=== PATIENT | female | born 1935 | race Caucasian/White ===

== ENCOUNTER 2016-09-02 01:00 | Inpatient (IN) | payer MEDICARE, OTHER ==
--- NOTE | ~2016-09-02 | OP ---
Record Of Operation [facility] [address] [place]. [address] NAME: AMILCAR CRAVEN : 33 STATUS : ADM IN PAT#: [id number] AGE: 81 ADM/REG DATE : 09/02/16 MR#: [id number] REPORT SERV DATE: 09/03/16 DICTATED BY: TAMRA BARILLAS DATE: 09/02/16 REPORT STATUS : Draft TRANSCRIBED BY: MODL DATE: 09/02/16 DATE OF PROCEDURE: 09/02/2016 PREOPERATIVE DIAGNOSIS: Displaced left femoral neck fracture. POSTOPERATIVE DIAGNOSIS: Displaced left femoral neck fracture. PROCEDURE: Uncemented total hip arthroplasty, Tri-Lock. SIDE: Left. SVP OF DIGITAL: ANESTHESIA: See chart. SIZE: See chart. ESTIMATED BLOOD LOSS: About 100 mL. INDICATIONS FOR SURGERY: PROCEDURE: The patient was taken to the operating room and placed supine on the table without incident. Anesthetic was induced per the anesthesiologist. A Nielsen catheter was placed by the nurse in the standard sterile technique. The correct side for the procedure was identified by preoperative markings and matched with the consent form. All personnel in the room were in agreement regarding the procedure, patient, and side. The patient was then carefully positioned and carefully padded and prepped and draped in the normal sterile fashion. The patient received prophylactic preoperative antibiotics at the appropriate time. The preoperative x-ray was brought up on the monitor. Again, this was reviewed with the staff in the room. According with the preoperative plan, and angled, an anterolateral incision was made centered over the trochanter extending from proximal posterior to distal anterior. Electrocautery was used to maintain meticulous hemostasis. The IT band was split in line with its fibers. A Charnley retractor was placed over saline moistened laps. A standard anterolateral approach to the hip was carried out dissecting in line with the vastus medialis fibers lifting the inferior 20% of the vastus medialis, proximally the interior 20% of the gluteus medius and gluteus minimus tendons off the anterior capsule. Periosteal elevator was used to elevate soft tissue gently directly off the proximal anterior femoral bone. Appropriate retractors were carefully placed. Complete anterior capsulectomy was performed. The hip was then carefully dislocated with a combination of traction maneuver by the assistant community manager and scooping the ball out of the socket with a Hohmann. A femoral neck osteotomy was marked according to what had been preoperatively planned with a broach as a template. The distance for the femoral neck osteotomy was measured with a ruler. A femoral neck osteotomy was made with an oscillating saw under appropriate retraction. Meticulous hemostasis was again obtained. The leg was then brought up out of the anterior bag and Record Of Operation [facility] [address] [place]. [address] NAME: AMILCAR CRAVEN : 33 STATUS : ADM IN PAT#: [id number] AGE: 81 ADM/REG DATE : 09/02/16 MR#: [id number] REPORT SERV DATE: 09/03/16 DICTATED BY: TAMRA BARILLAS DATE: 09/02/16 REPORT STATUS : Draft TRANSCRIBED BY: MEGHANA DATE: 09/02/16 positioned with the lower extremity in external rotation and slight flexion. Acetabular retractors were placed carefully palpating to be sure that they were directly on the bone. The acetabular labrum was excised with electrocautery and rongeur. Pulvinar fat was removed with a large curette and rongeur and again meticulous hemostasis was obtained. Sequential reamers were used in the acetabulum to 1 mm. less than the final size which was chosen. This was felt to give excellent interference fit. The acetabular fossa was then copiously irrigated with pulsatile lavage and actual acetabular component was placed and impacted and checked to make sure it was down snug. The overall alignment was checked. The acetabular filler block inserter remover was then removed. Screws were placed in the standard fashion. A drill, depth gauge and self tapping screw placement taking care not to plunge as the drill holes were carefully placed. A trial liner was then placed and attention directed back to the proximal femur. The leg was placed back into the anterior bag. The proximal femur was prepared using a box chisel following by a T-handled reamer to determine the intramedullary alignment. This was followed by sequential broaches up to the final broach. Once it was seated in the appropriate position, a Calcar reamer was used to plane the proximal femur. Trial reduction was then done with a trial prosthetic ball and neck. A straight edge was used to compare the tip of the trochanter to center of the ball relationship to what had been noted on the preoperative x-ray. Careful reduction was then done of the total hip. Palpation was done to ascertain and compare leg lengths by palpating the nonoperative leg and also by checking soft tissue tension. The stability of the hip was checked in full extension with full external rotation and in full flexion with adduction, flexion and internal rotation. The hip was then redislocated with a bone hook. The femoral trial and femoral broach were removed. The acetabulum was then prepared under appropriate retraction by removing the trial liner. A central hole eliminator was placed and tightened. The shell was irrigated out. The actual insert was placed and impacted and then checked to be sure it was down snug with a joker. The leg was again positioned in the bag. The proximal femur exposed, irrigated and the actual thermal prosthesis was taken from the security representative and impacted. Once it was down, the trunnion was cleansed with a wet and dry lap and the prosthetic thermal head was placed and impacted and checked to be sure it was down snug. The acetabulum was irrigated and reduction was obtained. Again, we checked soft tissue tension, leg length and stability as described above. The hip was closed in a layered fashion with a 5 mm. Mersilene tape placed through a single drill hole in the proximal anterior/superior trochanter reattaching the gluteus medius and minimus fibers. The vastus lateralis, gluteus medius, and gluteus minimus were then closed in a sleeve. Drain was placed between the vastus and the IT band exiting distally anteriorly. The IT band was closed. Subcutaneous closure and skin closure were then obtained. A sterile dressing was applied. The patient was carefully positioned into a supine position and then awakened. The patient was then carefully transferred to the stretcher to be returned to the postoperative care unit without incident. COMPLICATION: None. SPECIMENS: Left femoral head. Record Of Operation [facility] [address] [facility] [place]. [address] NAME: AMILCAR CRAVEN : 33 STATUS : ADM IN [facility]#: [id number] AGE: 81 ADM/REG DATE : 09/02/16 MR#: [id number] REPORT SERV DATE: 09/03/16 DICTATED BY: TAMRA BARILLAS DATE: 09/02/16 REPORT STATUS : Draft TRANSCRIBED BY: MODAydin DATE: 09/02/16 WTB/MODAydin Jonatan Barillas M.D. / [id number] CC: Henry Mccain MD
--- NOTE | ~2016-09-02 | DS ---
Discharge Summary [facility] [address] [place]. [address] NAME: AMILCAR CRAVEN : 33 STATUS : DIS IN PAT#: [id number] AGE: 81 ADM/REG DATE : 09/02/16 MR#: [id number] REPORT SERV DATE: 09/07/16 DICTATED BY: DATE: REPORT STATUS : Draft TRANSCRIBED BY: MODL DATE: 09/06/16 ADMISSION DATE: 09/02/2016 DISCHARGE DATE: 09/06/2016 Date of admission to [facility] 09/02/2016 with date of discharge 09/06/2016. The patient was admitted to the Hospitalist Service at [facility], discharged from the Hospitalist Service at [facility]. CONSULTANTS: Included Dr. Rucker of Orthopedics. DISCHARGE DIAGNOSES: 1. Left hip fracture following mechanical fall, status post left total hip arthroplasty on 09/02/2016. 2. Urinary tract infection. 3. History of Clostridium difficile colitis-no evidence of loose bowel movements here. 4. History of congestive heart failure with ejection fraction 20%, acute exacerbation at admission, resolved. 5. Dementia. 6. Depression and anxiety. 7. History of iron deficiency anemia-on replacement. 8. Postoperative deep venous thrombosis prophylaxis with Coumadin. 9. Low body mass index. IMAGIN. Brain CT without contrast, 09/01/2016, no acute intracranial hemorrhage or other acute intracranial pathology. Advanced diffuse cerebral involutional change and moderate advanced deep white matter chronic microvascular ischemic change, stable from February 2016. Soft tissue swelling on the frontal scalp with no cranial fracture. 2. Portable chest x-ray, 09/01/2016, showing cardiomegaly, sequelae of bilateral chronic rotator cuff tear. No rib fractures or pneumothorax. 3. Plain films of the left hip, 09/01/2016, left Garden 3 femoral neck fracture with global osteopenia. 4. Plain films of the left elbow, negative. 5. Pelvic films 09/01/2016, left Garden 3 femoral neck fracture. 6. Echocardiogram, 09/02/2016, severe left ventricle dysfunction with ejection fraction in the mid 20% range, anteroseptal akinesis, right ventricle systolic function also moderately impaired, aortic sclerosis with mild to moderate stenosis, small pericardial effusion of unknown significance. 7. PA and lateral chest x-ray, 09/02/2016, developing right perihilar infiltrate versus small right pleural effusion. 8. Pelvis films, 09/02/2016, status post interval left hip arthroplasty for repair of left femoral neck fracture. Stable surgical changes of the proximal right femur with intramedullary chato and screw device. 9. Portable chest x-ray, 09/04/2016, right basilar atelectasis with minimal right pleural fluid. 10.Demand related ischemia. Discharge Summary [address] [place]. [address] NAME: AMILCAR CRAVEN : 33 STATUS : DIS IN PAT#: [id number] AGE: 81 ADM/REG DATE : 09/02/16 MR#: [id number] REPORT SERV DATE: 09/07/16 DICTATED BY: DATE: REPORT STATUS : Draft TRANSCRIBED BY: MODL DATE: 09/06/16 PERTINENT LABS: Hemoglobin was stable preop and postop. Troponin values between 0.25 and 0.07. Urinalysis with large leukocyte esterase, 125 white blood cells. Subsequent culture showing mixed magnolia. Creatinine normal throughout admission with normal white blood cell count as well. INR at discharge 1.9, on Coumadin for DVT prophylaxis. Discharge hemoglobin 11.7. BRIEF HISTORY: For full details, please see the previously dictated history of present illness by Dr. Moncho Rosales at [facility]. This is an 81-year-old white female, who suffered a mechanical fall when getting out of bed, hit her left side injuring her shoulder, elbow, and hips. X-rays revealed a garden [address] Rucker was consulted for Ortho and wanted the patient transferred to the [facility] for further evaluation. Transfer occurred on the morning of 09/02/2016 and the patient went immediately to left hip total arthroplasty. HOSPITAL COURSE: Post surgery, the patient was found to have evidence of mild volume overload and acute congestive heart failure exacerbation with baseline ejection fraction 20% to 25%. This was managed with IV Lasix and her home medications were continued to include MARISA inhibitor, beta arnulfo, aspirin, statin. The pulmonary edema cleared and she did not require any supplemental oxygen at the time of discharge. Lung examination was normal at that point. She also demonstrated evidence of urinary tract infection with large leukocyte esterase, 125 white cells on urinalysis. She had a Nielsen catheter for 24 hours postop, and this was discontinued upon determination of urinary tract infection present at admission. She has a history of frequent urinary tract infections. This culture grew only diphtheroids, but past culture data were reviewed, and she is a good candidate for treatment with Bactrim based on prior culture data. 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 She did not demonstrate any loose bowel movements here and therefore no current evidence of C. diff colitis. She is on Coumadin for DVT prophylaxis and this will need to be closely monitored at her rehab facility. DISCHARGE DISPOSITION: To rehab when accepted and approved for additional physical rehabilitation following left hip total arthroplasty. She should adhere to a cardiac 1500 mL fluid restricted diet at discharge and sometimes requires assistance with meals due to generalized weakness. PT/INR will need to be checked at rehab every 48 hours with goal INR 2.0 to 3.0 for postoperative DVT prophylaxis. Her Coumadin needs to be discontinued on 09/02/2016, one month postop. If she experiences any loose bowel movements at rehab, we would request that the facility would check stool for C. diff, given past history. Discharge Summary [place] [id number] [facility] [place]. [address] NAME: AMILCAR CRAVEN : 33 STATUS : DIS IN PAT#: [id number] AGE: 81 ADM/REG DATE : 09/02/16 MR#: [id number] REPORT SERV DATE: 09/07/16 DICTATED BY: DATE: REPORT STATUS : Draft TRANSCRIBED BY: MEGHANA DATE: 09/06/16 The patient will need to follow up with Dr. Kenrick Rucker and her primary care provider within one to two weeks after discharge from rehab. DISCHARGE MEDICATIONS: Include, 1. Aspirin 81 mg p.o. daily. 2. Lipitor 10 mg p.o. q.h.s. 3. Coreg 3.125 mg p.o. daily. 4. Celexa 20 mg p.o. daily. 5. B12 of 1000 mcg p.o. daily. 6. Lasix 40 mg p.o. daily. 7. Prinivil 5 mg p.o. daily. 8. Remeron 7.5 mg p.o. q.h.s. 9. Multivitamin one tablet p.o. daily with meals. 10.Potassium 20 mEq p.o. daily. 11.Bactrim double strength one tablet p.o. twice a day for four days-discontinue after 09/09/2016 dosages. 12.DuoNeb 3 mL inhaled every four hours while awake as needed for shortness of breath. 13.Tylenol 650 mg p.o. every four hours as needed. 14.Dulcolax 15 mg p.o. daily as needed. 15.Colace 100 mg p.o. daily. 16.Hydrocodone 5/325 mg one tablet p.o. every four hours as needed for severe pain. 17.Milk of magnesia 30 mL p.o. daily as needed. 18.Zofran 4 mg p.o. every four hours as needed. 19.MiraLAX one packet p.o. twice a day as needed. 20.Iron sulfate 325 mg p.o. daily. 21.Coumadin 2 mg p.o. daily. 35 minutes were spent in completion of the discharge summary. DICTATED BY: Henry Mccain/MEGHANA Rex Jimenez M.D. / [id number] CC: Henry Mccain HAK SOK W. Timothy Ballard, M.D.
--- NOTE | ~2016-09-02 | HP ---
History And Physical [address] [place]. [address] NAME: AMILCAR CRAVEN : 33 STATUS : ADM IN PAT#: [id number] AGE: 81 ADM/REG DATE : 09/02/16 MR#: [id number] REPORT SERV DATE: 09/03/16 DICTATED BY: TAMRA RUCKER DATE: 09/02/16 REPORT STATUS : Draft TRANSCRIBED BY: MODL DATE: 09/02/16 DATE OF ADMISSION: 09/02/2016 CHIEF COMPLAINT: Left hip pain. HISTORY: An 81-year-old female, tripped and fell in the kitchen. I believe she has had an injury to left hip. Denies pain or injury elsewhere. ALLERGIES: ANTI-INFLAMMATORY MEDICATIONS, QUINOLONES, DIAZEPAM, CODEINE, FLAGYL, MEPERIDINE, PHENAZOPYRIDINE, AND LEVOFLOXACIN. MEDICATIONS: See chart. PAST MEDICAL HISTORY: Dementia per chart, cataracts, hypertension, hypercholesterolemia, arthritis, frequent UTIs, anxiety, depression, and anemia. PAST SURGICAL HISTORY: Cholecystectomy, kidney stone removal 20 years ago, and hysterectomy. SOCIAL HISTORY: No cigarettes, alcohol, or illicit drug use. FAMILY HISTORY: No anesthetic complications. REVIEW OF SYSTEMS: Otherwise, negative, except as above. PHYSICAL EXAMINATION: GENERAL: She is alert and pleasant, appears to be oriented. HEENT: Atraumatic and normocephalic. NECK: Supple. CHEST: Symmetric and nontender. LUNGS: Per AA evaluation. CV: Regular rhythm. ABDOMEN: Soft. No mass. EXTREMITIES: Both upper extremities and right lower extremity without acute trauma. Left lower extremity is short and externally rotated. Skin is intact. Compartment supple. 2+ pulses. NEURO: Sensorimotor without deficit. X-RAYS: Displaced left femoral neck fracture. ASSESSMENT: Displaced left femoral neck fracture. PLAN: Left total hip arthroplasty. We discussed this with her and with her son, Wolf, at length, who I spoke with some length over phone, and he and she wish to proceed. History And Physical [address] [place]. [address] NAME: AMILCAR CRAVEN : 33 STATUS : ADM IN PAT#: [id number] AGE: 81 ADM/REG DATE : 09/02/16 MR#: [id number] REPORT SERV DATE: 09/03/16 DICTATED BY: TAMRA RUCKER DATE: 09/02/16 REPORT STATUS : Draft TRANSCRIBED BY: MODL DATE: 09/02/16 WTB/MODL Jonatan Rucker M.D. / [id number] CC: Henry Mccain MD
[~2016-09-02 01:00] MED LIST: *UNABLE1; *UNABLE2; A/D ZINC OXI TOP; ADVIL PO; AMB10 PO; ASAB PO; ASPIRIN; BANOPHEN25 MG PO; BARRIER CREAM TOP; BRINT10T PO; CELEXA10 PO; CELEXA20 PO; CENTRUM PO; COREG3; COREG3 PO; CRANBERRY OTC PO; CYANO1000T PO; DOK100 MG PO; FERROUS SULF325 M1 PO; FLONASE; FLONASE NAS; FLORASTOR250 MG PO; HALF81 PO; IBU400 PO; IRON OTC PO; KLOR-CON M2020 MEQ PO; L40; L40 PO; MELA3 PO; MVI PO; NORV5 PO; OTC ALLERGY MED PO; PRIN10 PO; PRIN5 PO; REM15 PO; REMERON30 MG; REMERON30 MG PO; REST75 PO; THERGRANM PO; TRAZ50 PO; TRINTELLIX; TRINTELLIX PO; VANCOCIN HCL125 MG PO; VITAMIN B-12 OTC PO; VITAMIN B-121000 MC1 SL; ZESTRIL5 MG PO; ZOCOR10 PO; ZOCOR20 PO
[2016-09-02 06:54] LABS: INTERNATIONAL NORMAL RATI 1.3 UNITS (-)
[2016-09-02 06:59] LABS: BASOPHILS 0.2 %; BASOPHILS ABSOLUTE 0.02 10/3/uL (0.0-0.16); EOSINOPHILS 2.1 %; EOSINOPHILS ABSOLUTE 0.22 10/3/uL (0.0-0.53); HEMATOCRIT 36.2 % (36.0-48.0); HEMOGLOBIN 11.7 g/dL (12.0-16.0); IMMATURE GRANULOCYTES 0.4 %; IMMATURE GRANULOCYTES ABSOLUTE 0.04 10/3/uL (0.0-0.11); LYMPHOCYTES 13.2 %; LYMPHOCYTES ABSOLUTE 1.39 10/3/uL (0.67-4.30); MANUAL DIFF NO %; MEAN CORPUS HGB CONC 32.3 g/dL (32.0-36.0); MEAN CORPUSCULAR HEMOGLOB 33.7 pg (26.0-34.0); MEAN CORPUSCULAR VOLUME 104.3 fL (80-100); MEAN PLATELET VOLUME 10.8 fL (9.2-13.0); MONOCYTES 5.9 %; MONOCYTES ABSOLUTE 0.62 10/3/uL (0.21-1.20); NEUTROPHILS 78.2 %; NEUTROPHILS ABSOLUTE 8.22 10/3/uL (2.02-8.40); PLATELET COUNT 213 10/3/uL (150-400); RBC DISTRIBUTION WIDTH 14.7 % (12.0-16.0); RED CELL COUNT 3.47 10/6/uL (4.0-5.6); WHITE BLOOD CELLS 10.5 10/3/uL (4.5-10.5)
[2016-09-02 07:13] LABS: A/G RATIO 1.2 (0.7-1.9); ALBUMIN 3.2 G/DL (3.5-5.0); ALKALINE PHOSPHATASE 64 U/L (45-117); BUN (BLOOD UREA NITROGEN) 14 MG/DL (6-23); CALCIUM, SERUM 8.8 MG/DL (8.5-10.4); CHLORIDE, SERUM 110 MMOL/L (96-112); CO2 (CARBON DIOXIDE) 27 MMOL/L (24-34); CREATININE 0.67 MG/DL (0.55-1.02); GFR AFRICAN AMERICAN 94 ML/MIN (>=60); GFR NON AFRICAN AMERICAN 81 ML/MIN (>=60); GLOBULIN 2.7 G/DL (2.5-4.1); GLUCOSE, SERUM 120 MG/DL (60-99); PHOSPHORUS, SERUM 2.6 MG/DL (2.5-4.5); POTASSIUM, SERUM 3.1 MMOL/L (3.5-5.3); SGOT(AST) 11 U/L (5-40); SGPT(ALT) 16 U/L (5-65); SODIUM, SERUM 145 MMOL/L (135-148); TOTAL BILIRUBIN 0.6 MG/DL (0-1.2); TOTAL PROTEIN 5.9 G/DL (6.0-8.5)
[2016-09-02 07:15] LABS: TROPONIN I 0.25 NG/ML (<0.05)
[2016-09-02 10:41] LABS: TROPONIN I 0.23 NG/ML (<0.05)
[2016-09-02 11:55] LABS: BASOPHILS 0.3 %; BASOPHILS ABSOLUTE 0.03 10/3/uL (0.0-0.16); EOSINOPHILS 3.4 %; EOSINOPHILS ABSOLUTE 0.36 10/3/uL (0.0-0.53); HEMATOCRIT 36.5 % (36.0-48.0); IMMATURE GRANULOCYTES 0.4 %; IMMATURE GRANULOCYTES ABSOLUTE 0.04 10/3/uL (0.0-0.11); LYMPHOCYTES 15.7 %; LYMPHOCYTES ABSOLUTE 1.65 10/3/uL (0.67-4.30); MEAN CORPUS HGB CONC 32.9 g/dL (32.0-36.0); MEAN CORPUSCULAR HEMOGLOB 34.3 pg (26.0-34.0); MEAN CORPUSCULAR VOLUME 104.3 fL (80-100); MONOCYTES 5.2 %; MONOCYTES ABSOLUTE 0.55 10/3/uL (0.21-1.20); NEUTROPHILS ABSOLUTE 7.86 10/3/uL (2.02-8.40); PLATELET COUNT 207 10/3/uL (150-400); WHITE BLOOD CELLS 10.5 10/3/uL (4.5-10.5)
[2016-09-02 11:56] LABS: MANUAL DIFF NO %
[2016-09-02 12:07] LABS: BUN (BLOOD UREA NITROGEN) 15 MG/DL (6-23); CALCIUM, SERUM 8.4 MG/DL (8.5-10.4); CHLORIDE, SERUM 111 MMOL/L (96-112); CO2 (CARBON DIOXIDE) 25 MMOL/L (24-34); CREATININE 0.72 MG/DL (0.55-1.02); GFR AFRICAN AMERICAN 90 ML/MIN (>=60); GFR NON AFRICAN AMERICAN 77 ML/MIN (>=60); GLUCOSE, SERUM 113 MG/DL (60-99); POTASSIUM, SERUM 3.6 MMOL/L (3.5-5.3); SODIUM, SERUM 146 MMOL/L (135-148)
[2016-09-02 14:10] LABS: ASCORBIC ACID (UR NOT ORDER) NEG (NEG); BILIRUBIN, URINE NEGATIVE (NEG); KETONE, URINE TRACE MG/DL (NEG); LEUKOCYTE ESTERASE(NOT OR LARGE (NEG); WBC (NOT ORDERED) (RFLEX) 125 (0-5)
[2016-09-03 07:01] LABS: HEMOGLOBIN 10.5 g/dL (12.0-16.0)
[2016-09-03 07:09] LABS: INTERNATIONAL NORMAL RATI 1.4 UNITS (-); PROTIME (NOT ORD) 16.6 SEC (12.0-14.5)
[2016-09-03 07:20] LABS: CALCIUM, SERUM 8.4 MG/DL (8.5-10.4); CHLORIDE, SERUM 113 MMOL/L (96-112); CO2 (CARBON DIOXIDE) 28 MMOL/L (24-34); GFR AFRICAN AMERICAN 93 ML/MIN (>=60); GFR NON AFRICAN AMERICAN 80 ML/MIN (>=60); GLUCOSE, SERUM 94 MG/DL (60-99); SODIUM, SERUM 146 MMOL/L (135-148)
[2016-09-03 07:21] LABS: BUN (BLOOD UREA NITROGEN) 19 MG/DL (6-23)
[2016-09-04 07:07] LABS: BASOPHILS 0.1 %; BASOPHILS ABSOLUTE 0.01 10/3/uL (0.0-0.16); EOSINOPHILS ABSOLUTE 0.93 10/3/uL (0.0-0.53); HEMATOCRIT 31.8 % (36.0-48.0); HEMOGLOBIN 10.4 g/dL (12.0-16.0); IMMATURE GRANULOCYTES 0.4 %; IMMATURE GRANULOCYTES ABSOLUTE 0.03 10/3/uL (0.0-0.11); LYMPHOCYTES 17.6 %; LYMPHOCYTES ABSOLUTE 1.26 10/3/uL (0.67-4.30); MEAN CORPUS HGB CONC 32.7 g/dL (32.0-36.0); MEAN CORPUSCULAR HEMOGLOB 34.2 pg (26.0-34.0); MEAN CORPUSCULAR VOLUME 104.6 fL (80-100); MEAN PLATELET VOLUME 10.9 fL (9.2-13.0); MONOCYTES 8.4 %; NEUTROPHILS 60.5 %; NEUTROPHILS ABSOLUTE 4.34 10/3/uL (2.02-8.40); RBC DISTRIBUTION WIDTH 14.9 % (12.0-16.0); RED CELL COUNT 3.04 10/6/uL (4.0-5.6); WHITE BLOOD CELLS 7.2 10/3/uL (4.5-10.5)
[2016-09-04 07:08] LABS: MANUAL DIFF NO %; PLATELET COUNT 144 10/3/uL (150-400)
[2016-09-04 07:14] LABS: INTERNATIONAL NORMAL RATI 1.6 UNITS (-); PROTIME (NOT ORD) 18.9 SEC (12.0-14.5)
[2016-09-04 07:26] LABS: BUN (BLOOD UREA NITROGEN) 20 MG/DL (6-23); CALCIUM, SERUM 8.4 MG/DL (8.5-10.4); CHLORIDE, SERUM 111 MMOL/L (96-112); CO2 (CARBON DIOXIDE) 28 MMOL/L (24-34); CREATININE 0.61 MG/DL (0.55-1.02); GFR AFRICAN AMERICAN 97 ML/MIN (>=60); GFR NON AFRICAN AMERICAN 84 ML/MIN (>=60); GLUCOSE, SERUM 105 MG/DL (60-99); POTASSIUM, SERUM 4.1 MMOL/L (3.5-5.3); SODIUM, SERUM 144 MMOL/L (135-148); TROPONIN I 0.07 NG/ML (<0.05)
[2016-09-05 06:10] LABS: BASOPHILS 0.3 %; BASOPHILS ABSOLUTE 0.03 10/3/uL (0.0-0.16); EOSINOPHILS 11.1 %; EOSINOPHILS ABSOLUTE 1.03 10/3/uL (0.0-0.53); HEMATOCRIT 36.1 % (36.0-48.0); HEMOGLOBIN 11.7 g/dL (12.0-16.0); IMMATURE GRANULOCYTES 0.4 %; IMMATURE GRANULOCYTES ABSOLUTE 0.04 10/3/uL (0.0-0.11); LYMPHOCYTES 21.5 %; LYMPHOCYTES ABSOLUTE 1.99 10/3/uL (0.67-4.30); MANUAL DIFF NO %; MEAN CORPUS HGB CONC 32.4 g/dL (32.0-36.0); MEAN CORPUSCULAR HEMOGLOB 34.1 pg (26.0-34.0); MEAN CORPUSCULAR VOLUME 105.2 fL (80-100); MEAN PLATELET VOLUME 10.9 fL (9.2-13.0); MONOCYTES 9.6 %; MONOCYTES ABSOLUTE 0.89 10/3/uL (0.21-1.20); NEUTROPHILS 57.1 %; NEUTROPHILS ABSOLUTE 5.26 10/3/uL (2.02-8.40); PLATELET COUNT 185 10/3/uL (150-400); RBC DISTRIBUTION WIDTH 14.9 % (12.0-16.0); RED CELL COUNT 3.43 10/6/uL (4.0-5.6); WHITE BLOOD CELLS 9.2 10/3/uL (4.5-10.5)
[2016-09-05 06:13] LABS: INTERNATIONAL NORMAL RATI 1.8 UNITS (-); PROTIME (NOT ORD) 21.1 SEC (12.0-14.5)
[2016-09-05 06:20] LABS: BUN (BLOOD UREA NITROGEN) 18 MG/DL (6-23); CHLORIDE, SERUM 109 MMOL/L (96-112); CO2 (CARBON DIOXIDE) 26 MMOL/L (24-34); CREATININE 0.55 MG/DL (0.55-1.02); GFR AFRICAN AMERICAN 101 ML/MIN (>=60); GFR NON AFRICAN AMERICAN 87 ML/MIN (>=60); GLUCOSE, SERUM 122 MG/DL (60-99); POTASSIUM, SERUM 4.1 MMOL/L (3.5-5.3); SODIUM, SERUM 142 MMOL/L (135-148)
[2016-09-06 04:55] LABS: BASOPHILS 0.6 %; BASOPHILS ABSOLUTE 0.05 10/3/uL (0.0-0.16); EOSINOPHILS 12.2 %; EOSINOPHILS ABSOLUTE 1.08 10/3/uL (0.0-0.53); HEMATOCRIT 34.3 % (36.0-48.0); IMMATURE GRANULOCYTES 0.7 %; IMMATURE GRANULOCYTES ABSOLUTE 0.06 10/3/uL (0.0-0.11); LYMPHOCYTES 29.1 %; LYMPHOCYTES ABSOLUTE 2.58 10/3/uL (0.67-4.30); MEAN CORPUS HGB CONC 32.1 g/dL (32.0-36.0); MEAN CORPUSCULAR HEMOGLOB 33.8 pg (26.0-34.0); MEAN CORPUSCULAR VOLUME 105.5 fL (80-100); MEAN PLATELET VOLUME 10.7 fL (9.2-13.0); MONOCYTES 9.1 %; MONOCYTES ABSOLUTE 0.81 10/3/uL (0.21-1.20); NEUTROPHILS 48.3 %; NEUTROPHILS ABSOLUTE 4.29 10/3/uL (2.02-8.40); PLATELET COUNT 230 10/3/uL (150-400); RBC DISTRIBUTION WIDTH 14.8 % (12.0-16.0); RED CELL COUNT 3.25 10/6/uL (4.0-5.6); WHITE BLOOD CELLS 8.9 10/3/uL (4.5-10.5)
[2016-09-06 04:56] LABS: MANUAL DIFF NO %
[2016-09-06 05:02] LABS: INTERNATIONAL NORMAL RATI 1.9 UNITS (-); PROTIME (NOT ORD) 21.8 SEC (12.0-14.5)
[2016-09-06 05:09] LABS: CHLORIDE, SERUM 108 MMOL/L (96-112); CREATININE 0.71 MG/DL (0.55-1.02); GFR AFRICAN AMERICAN 91 ML/MIN (>=60); GFR NON AFRICAN AMERICAN 79 ML/MIN (>=60); POTASSIUM, SERUM 4.5 MMOL/L (3.5-5.3); SODIUM, SERUM 142 MMOL/L (135-148)
[2016-09-06 05:10] LABS: BUN (BLOOD UREA NITROGEN) 24 MG/DL (6-23); CO2 (CARBON DIOXIDE) 32 MMOL/L (24-34); GLUCOSE, SERUM 95 MG/DL (60-99)
== END 2016-09-06 20:21 | DRG 469 ==
LOC: 7NO 01:00
PROVIDERS: Hospitalist; Internal Medicine; Specialist
PROC: 0SRB02A Replacement of Left Hip Joint with Metal on Polyethylene Synthetic Substitute, Uncemented, Open Approach (ICD-10-PCS; principal; 2016-09-02 18:15)
DX: S72.002A Fracture of unspecified part of neck of left femur, initial encounter for closed fracture (principal); I50.23 Acute on chronic systolic (congestive) heart failure; N39.0 Urinary tract infection, site not specified; F03.90 Unspecified dementia, unspecified severity, without behavioral disturbance, psychotic disturbance, mood disturbance, and anxiety; W01.0XXA Fall on same level from slipping, tripping and stumbling without subsequent striking against object, initial encounter; Y92.010 Kitchen of single-family (private) house as the place of occurrence of the external cause; E78.00 Pure hypercholesterolemia, unspecified; Z87.440 Personal history of urinary (tract) infections; F32.9 Major depressive disorder, single episode, unspecified; F41.9 Anxiety disorder, unspecified; Z90.49 Acquired absence of other specified parts of digestive tract; Z90.710 Acquired absence of both cervix and uterus; D50.9 Iron deficiency anemia, unspecified; E78.5 Hyperlipidemia, unspecified; I11.0 Hypertensive heart disease with heart failure; Z88.6 Allergy status to analgesic agent; Z88.5 Allergy status to narcotic agent; Z88.1 Allergy status to other antibiotic agents; Z79.82 Long term (current) use of aspirin
CPT/HCPCS: 70450; 71010; 71020; 72170; 73080-LT; 73502-LT; 80048; 80053; 81001; 82550; 82962; 83605; 83735; 83880; 84100; 84145; 84439; 84443; 84484; 85014; 85018; 85025; 85610; 85730; 87040; 87086; 87641; 88305; 88311; 93005; 93306; 94640; 96374; 97110-GP; 97162-GP; 97166-GO; 97530-GP; 97535-GO; 99285; A9270-GY; C1713; C1776; J0690; J1170; J1885; J2250; J2274; J2370; J2710; J2795; J3010; J3370

== ENCOUNTER 2016-09-27 14:49 | Emergency (ER) | payer MEDICARE, OTHER | END 2016-09-27 17:36 | disposition home or self-care (01) | LOC: ER 14:49 | DX: S09.90XA Unspecified injury of head, initial encounter (principal); F03.90 Unspecified dementia, unspecified severity, without behavioral disturbance, psychotic disturbance, mood disturbance, and anxiety; I10 Essential (primary) hypertension; Z87.442 Personal history of urinary calculi; D64.9 Anemia, unspecified; Z88.6 Allergy status to analgesic agent; Z88.1 Allergy status to other antibiotic agents; Z88.8 Allergy status to other drugs, medicaments and biological substances; Z88.5 Allergy status to narcotic agent; Z79.82 Long term (current) use of aspirin; Z79.899 Other long term (current) drug therapy; W19.XXXA Unspecified fall, initial encounter | CPT/HCPCS: 70450; 99284 ==